=== PATIENT | female | born 1990 | race Caucasian/White ===

== ENCOUNTER 2018-03-11 18:42 | Emergency (ER) | payer OTHER ==
[2018-03-11] MEDS ORDERED: ACETAMINOPHEN TAB 500 MG TAB PO STA (19:32)
--- NOTE | 2018-03-11 19:35 | ED ---
General Adult HPI - General Chief complaint: Fall Stated complaint: Ankle pain Time Seen by Provider: 03/11/18 19:23 Source: patient, RN notes reviewed Mode of arrival: wheelchair Limitations: no limitations - History of Present Illness Initial comments: Chief complaint history of present illness a 28-year-old female who is her second day at [facility] for IV opiates. States she stumbled down several steps complaining of right foot and right ankle pain. Denies any other injuries or complaints. She was given Tylenol in emergency room. - Related Data Allergies Allergy/AdvReac Type Severity Reaction Status Date / Time amoxicillin Allergy Anaphylaxis Verified 03/11/18 19:08 Penicillins Allergy Anaphylaxis Verified 03/11/18 19:08 sulfamethoxazole Allergy Nausea & Verified 03/11/18 19:08 [From Bactrim] Vomiting trimethoprim [From Bactrim] Allergy Nausea & Verified 03/11/18 19:08 Vomiting Review of Systems ROS Statement: Those systems with pertinent positive or pertinent negative responses have been documented in the HPI. Review of systems no complaint of headache or visual changes no neck pain no chest pain shortness of breath no upper extremity pain no pain to her left leg. She has pain to her right foot and right ankle. All systems reviewed. Past medical problems none. Surgeries none. Family history mother had breast cancer grandmother had brain cancer. The patient's ALLERGIES to penicillin and sulfa. Denies smoking. Denies alcohol. Past medical problems significant for IV opiate abuse currently at [facility] for the past 2 [facility] for treatment. ROS Other: All systems not noted in ROS Statement are negative. Past Medical History Past Medical History: No Reported History History of Any Multi-Drug Resistant Organisms: None Reported Past Surgical History: No Surgical Hx Reported Past Psychological History: No Psychological Hx Reported Smoking Status: Current every day smoker Past Alcohol Use History: None Reported Past Drug Use History: None Reported General Exam - General Exam Comments Initial Comments: General: The patient is awake and alert, complains of pain right foot right ankle. Vital signs stable temperature 98.8 pulse 88 history rate 18 pulse ox R percent room air blood pressure 133/79 Eye: Pupils are equal, round and reactive to light, extra-ocular movements are intact ; there is normal conjunctiva bilaterally. No signs of icterus. Ears, nose, mouth and throat: There are moist mucous membranes and no oral lesions. Neck: Neck nontender full range of motion. Back: No back pain, full range of motion. Musculoskeletal: Upper and lower extremities examined full range of motion. She does complain of pain to her right foot and right ankle. Decreased range of motion neurovascular status intact. Neurological: No focal or lateralizing findings noted or complained of. Limitations: no limitations Course Vital Signs 03/11/18 19:00 Temperature 98.8 F Pulse Rate 80 Respiratory 18 Rate Blood Pressure 133/79 O2 Sat by Pulse 100 Oximetry Medical Decision Making - Medical Decision Making Medical decision making; this is a 28-year-old female who is coming to emergency room from [facility]. The patient tripped down several steps complaining of pain to her right foot and ankle. X-ray right foot and ankle were done and reviewed by the radiologist his impression is no acute fracture to the foot or ankle. As read by Dr. Shanell Menchaca. Patient had an Doug wrap applied told ice elevate continue with Tylenol at the rehab center or whatever medication they deem necessary. Patient was given Ativan in emergency room at her request for her withdrawal from IV opiates. Disposition Clinical Impression: Right ankle sprain, Right foot sprain Disposition: HOME SELF-CARE Condition: Fair Instructions: Fall Prevention for Older Adults (ED) Additional Instructions: Doug ice elevate Tylenol for pain. If pain persists re-x-ray in 7 days may be necessary. Follow-up with family physician or the on-call orthopedic surgeon as needed. Is patient prescribed a controlled substance at d/c from ED?: No Referrals: None,Stated [Primary Care Provider] - 1-2 days Angeles Montana DO [Doctor of Osteopathic Medicine] - 1-2 days Time of Disposition: 20:39
[2018-03-11] MEDS ORDERED: LORazepam 1 MG TAB PO STA (19:46)
--- NOTE | 2018-03-11 20:25 | XR ---
PROCEDURE: XR ankle complete RT 3 views DATE AND TIME: 03/11/2018 7:43 PM REFERRING PHYSICIAN: Varun Thomas MD CLINICAL INDICATION: [facility], Pain TECHNIQUE: Department protocol. COMPARISON: None FINDINGS: There is no fracture or malalignment. The soft tissues are unremarkable. IMPRESSION: NO ACUTE PROCESS.
--- NOTE | 2018-03-11 20:26 | XR ---
PROCEDURE: XR foot complete RT 3 views DATE AND TIME: 03/11/2018 7:43 PM REFERRING PHYSICIAN: Varun Thomas MD CLINICAL INDICATION: [facility], Pain TECHNIQUE: Department protocol. COMPARISON: None FINDINGS: There is no fracture or malalignment. The soft tissues are unremarkable. IMPRESSION: NO ACUTE PROCESS.
[2018-03-11 20:44] VITALS: BP 116/72; PULSE 73; RESP 17; TEMP 98.6
== END 2018-03-11 21:07 | disposition home or self-care (01) ==
LOC: EC 18:42
DX: S93.401A Sprain of unspecified ligament of right ankle, initial encounter (principal); S93.601A Unspecified sprain of right foot, initial encounter; F17.200 Nicotine dependence, unspecified, uncomplicated; Z88.0 Allergy status to penicillin; Z88.2 Allergy status to sulfonamides; W10.9XXA Fall (on) (from) unspecified stairs and steps, initial encounter; Y92.128 Other place in nursing home as the place of occurrence of the external cause
CPT/HCPCS: 99283